=== PATIENT | male | born 1975 | race Caucasian/White ===

== ENCOUNTER 2016-08-26 14:01 | Emergency (ER) | payer BC ==
[2016-08-26] MEDS ORDERED: Lorazepam 2 MG/ML VIAL ONE (14:24)
--- NOTE | 2016-08-26 14:24 | RAD ---
FRONTAL VIEW CHEST: COMPARISON: No prior comparison. INDICATION: Chest pain. FINDINGS: There is no evidence of lobar consolidation, effusion, or pneumothorax. Cardiac silhouette is accen tuated by portable technique. IMPRESSION: No focal consolidation. POS: [facility]
[2016-08-26] MEDS ORDERED: Nitroglycerin 2% Ointment 1 INCH/1 GM Packet ONE (14:26)
[2016-08-26 14:50] LABS: ALT (SGPT) 23 U/L (0-55); AST (SGOT) 12 U/L (5-34); Albumin 3.9 g/dL (3.5-5.0); Alkaline Phosphatase 59 U/L (40-150); Anion Gap 16 mmol/L (10-20); BUN (Urea Nitrogen) 15 mg/dL (8.9-20.6); Bilirubin, Total 0.5 mg/dL (0.2-1.2); Calc. Creatinine Clearance 0 mL/min (70-130); Calcium 8.7 mg/dL (7.8-10.44); Carbon Dioxide 20 mmol/L (22-29); Chloride 104 mmol/L (98-107); Estimated GFR-MDRD Greater than 90; Globulin 3.1 g/dL (2.4-3.5); Glucose 267 mg/dL (70-105); Sodium 136 mmol/L (136-145)
[2016-08-26 14:52] LABS: CKMB 3.4 ng/mL (0-6.6); Troponin I 0.119 ng/mL (< 0.028)
== END 2016-08-26 14:55 | disposition left against medical advice (07) ==
LOC: MADERS 14:01
DX: R07.9 Chest pain, unspecified (principal); E11.9 Type 2 diabetes mellitus without complications; I10 Essential (primary) hypertension; Z79.4 Long term (current) use of insulin; F17.290 Nicotine dependence, other tobacco product, uncomplicated
CPT/HCPCS: 36415; 36416; 71010; 80053; 82553; 83880; 84484; 85730; 93005; 96374; J2060